=== PATIENT | male | born 1965 | race Two or more races ===

== ENCOUNTER 2017-04-03 09:12 | Emergency (ER) | payer SELFPAY ==
[2017-04-03 09:16] VITALS: TEMP 98.2; BMI 35.9
--- NOTE | 2017-04-03 09:28 | PDOC ---
History of Present Illness <Josh Christensen - Last Filed: 04/03/17 11:57> - General History Source: Patient Exam Limitations: No Limitations - History of Present Illness Initial Comments: 04/03/17 13:18 Patient is a 51 year old male with a past medical history of hypertension (non compliant with medication) who presents to the ED with left flank pain since last Friday. Patient states that the pain is localized to the left flank, constant, non radiating, but he is also complaining of LLQ. Patient states that he has been taking advil with mild relief. He states that the pain is exacerbated by positional changes such as sitting up and standing. Patient reports nausea but denies any vomiting. He also reports mild headache. 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 Denies any recent injuries/falls, heavy lifting, chest pain, shortnes of breath, numness/tingling/weakness, urinary or bowel incontinence. He denies dysuria, urgency, frequency or hematuria. <Karen Arredondo - Last Filed: 04/03/17 13:19> - General Chief Complaint: Pain, Acute Stated Complaint: PAIN/ LOWER BACK, ABD Time Seen by Provider: 04/03/17 09:26 Past History - Past Medical History Anemia: No Asthma: No Cancer: No Cardiac Disorders: No CVA: No COPD: No CHF: No DVT: No Dementia: No Diabetes: No Dialysis: No GI Disorders: No (no diagnosed disorders.) Disorders: No HTN: (elevated and very poor historian, no doctor) Hypercholesterolemia: No HIV: No Kidney Stones: No Liver Disease: No Psychiatric Problems: (anxiety) Suicide Attempt (Hx): No Seizures: No Thyroid Disease: No Lung CA: No - Surgical History Abdominal Surgery: No - Immunization History Immunization Up to Date: Yes (no flu) - Psycho/Social/Smoking Cessation Hx Anxiety: No Suicidal Ideation: No Smoking Status: No Smoking History: Never smoked Have you smoked in the past 12 months: No Number of Cigarettes Smoked Daily: 0 Information on smoking cessation initiated: No 'Breaking Loose' booklet given: 08/28/13 Hx Alcohol Use: No Drug/Substance Use Hx: No Substance Use Type: None <Josh Christensen - Last Filed: 04/03/17 11:57> <Karen Arredondo - Last Filed: 04/03/17 13:19> - Past Medical History Allergies/Adverse Reactions: Allergies Allergy/AdvReac Type Severity Reaction Status Date / Time No Known Allergies Allergy Verified 04/03/17 09:13 Home Medications: Ambulatory Orders NK [No Known Home Medication] 04/03/17 Review of Systems - Review of Systems Able to Perform ROS?: Yes Comments:: 04/03/17 13:19 CONSTITUTIONAL: No reported: Fever, Chills, Diaphoresis, Generalized Weakness, Malaise, Loss of Appetite HEENT: No reported: Rhinorrhea, Nasal Congestion, Throat Pain, Throat Swelling, Difficulty Swallowing, Mouth Swelling, Ear Pain, Eye Pain, Visual Changes CARDIOVASCULAR: No reported: Chest Pain, Syncope, Palpitations, Irregular Heart Rate, Lightheadedness, Peripheral Edema RESPIRATORY: No reported: Cough, Shortness of Breath, SOB with Exertion, Orthopnea, Wheezing , Stridor, Hemoptysis GASTROINTESTINAL: Reported: LLQ pain No reported: Abdominal Distension, Nausea, Vomiting, Diarrhea, Constipation, Melena, Hematochezia GENITOURINARY: No reported: Dysuria, Frequency, Urgency, Hesitancy, Genital Pain MUSCULOSKELETAL: Reported: Left flank pain No reported: Myalgia, Arthralgia, Joint Swelling, Back pain, Neck Pain SKIN: No reported: Rash, Itching, Pallor HEMEATOLOGIC/IMMUNOLOGIC: No reported: Easy Bleeding, Easy Bruising, Lymphadenopathy, Frequent infections ENDOCRINE: No reported: Unexplained Weight Gain, Unexplained Weight Loss, Heat Intolerance , Cold Intolerance NEUROLOGIC: No reported: Headache, Focal Weakness, Paresthesias, Vertigo, Lightheadedness, Unsteady Gait, Seizure, Mental Status Changes, Incontinence PSYCHIATRIC: No reported: Anxiety, Depression <Karen Arredondo - Last Filed: 04/03/17 13:19> *Physical Exam - Vital Signs Last Vital Signs Temp Pulse Resp BP Pulse Ox 98.2 F 94 H 18 154/103 100 04/03/17 09:14 04/03/17 09:14 04/03/17 09:14 04/03/17 09:14 04/03/17 09:14 <Josh Christensen - Last Filed: 04/03/17 11:57> - Vital Signs Last Vital Signs Temp Pulse Resp BP Pulse Ox 98.2 F 81 20 150/95 99 04/03/17 09:14 04/03/17 12:10 04/03/17 12:10 04/03/17 12:10 04/03/17 12:10 - Physical Exam Comments: 04/03/17 13:19 GENERAL: The patient is awake, alert, and fully oriented, Nontoxic - in no acute distress. HEAD: Normocephalic, atraumatic. EYES: extraocular movements intact, sclera anicteric, conjunctiva clear. ENT: Normal voice, Moist mucous membranes. NECK: Normal range of motion, supple LUNGS: Breath sounds equal, clear to auscultation bilaterally. No wheezes, no rhonchi, no rales. HEART: Regular rate and rhythm, without murmur, rub or gallop. ABDOMEN: Soft, nontender, normoactive bowel sounds. No guarding, no rebound.No CVA tenderness EXTREMITIES: Normal range of motion, no edema. No clubbing or cyanosis. No cords, erythema, or tenderness. NEUROLOGICAL: No facial assymetry, Normal speech, PSYCH: Normal mood, normal affect. SKIN: Warm, Dry, normal turgor <Karen Arredondo - Last Filed: 04/03/17 13:19> Heart Score/ECG Review - ECG Impressions Comment:: 04/03/17 11:05 Twelve-lead EKG was performed and reviewed by me. There is normal sinus rhythm with a normal rate. Rate of 87 The axis is normal. The intervals are normal. Q wave in avf <Josh Christensen - Last Filed: 04/03/17 11:57> ED Treatment Course - LABORATORY CBC & Chemistry Diagram: 04/03/17 09:28 04/03/17 09:28 <Josh Christensen - Last Filed: 04/03/17 11:57> - LABORATORY CBC & Chemistry Diagram: 04/03/17 09:28 04/03/17 09:28 - ADDITIONAL ORDERS Additional order review: Laboratory Results 04/03/17 04/03/17 09:45 09:28 Sodium 140 Potassium 3.8 Chloride 105 Carbon Dioxide 29 Anion Gap 6 L BUN 11 Creatinine 1.0 Creat Clearance w eGFR > 60 Random Glucose 105 Calcium 8.5 Total Bilirubin 1.2 H AST 32 ALT 48 D Alkaline Phosphatase 112 Total Protein 6.9 Albumin 3.4 Urine Color Yellow Urine Appearance Clear Urine pH 5.0 Urine Protein Negative Urine Glucose (UA) Negative Urine Ketones Negative Urine Blood Negative Urine Nitrite Negative Urine Bilirubin Negative Urine Urobilinogen Negative Ur Leukocyte Esterase Negative 04/03/17 09:28 RBC 4.47 MCV 88.8 MCHC 35.4 RDW 13.3 MPV 7.9 Neutrophils % 67.9 Lymphocytes % 21.4 Monocytes % 8.2 Eosinophils % 2.1 Basophils % 0.4 - Medications Given in the ED: ED Medications Discontinued Medications Generic Name Dose Route Start Last Admin Trade Name Charity PRN Reason Stop Dose Admin Ketorolac Tromethamine 30 mg 04/03/17 09:57 04/03/17 10:05 Toradol Injection - IVPUSH 04/03/17 09:58 30 mg ONCE ONE Administration <Karen Arredondo - Last Filed: 04/03/17 13:19> Medical Decision Making - Medical Decision Making 04/03/17 10:05 51y M hx of htn, presents with complaint of L flank/back pain x 5 days associated with mild nausea. Pain seems worse with movement but is there at baseline. No associated fever/chills, numbness/tingling/weakness, recent trauma/ injuries. on exam the pt appears well with no focal back tendernessi n midline nor parapsinal. no significant abdominal tendnerness, although pt endorses the pain worsens with SLR of L leg. consider possible kidney stones vs. msk pain will ck basic labs, ua will give toradol A portion of this note was documented by scribe services under my direction. I have reviewed the details of the note, within reason, and agree with the documentation with the following case summary and management plan written by me 04/03/17 11:57 pt feeling improved will dc the pt with pmd fu return precautions were discussed labs unremarkable I discussed the physical exam findings, ancillary test results and final diagnoses with the patient. I answered all of the patient's questions. The patient was satisfied with the care received and felt comfortable with the discharge plan and treatment plan. The patient will call their primary care physician within 24 hours to arrange follow-up and will return to the Emergency Department with any new, persistent or worsening symptoms. <Josh Christensen - Last Filed: 04/03/17 11:57> *DC/Admit/Observation/Transfer - Discharge Dispostion Admit: No <Josh Christensen - Last Filed: 04/03/17 11:57> - Attestations Scribe Attestion: 04/03/17 13:19 Documentation prepared by LUIS FELIPE Hubbard, acting as biomedical electronics technician for Josh Christensen MD. <Karen Arredondo - Last Filed: 04/03/17 13:19> Diagnosis at time of Disposition: Muscular pain - Referrals Referrals: [facility] [Provider Group] - Patient Instructions Printed Discharge Instructions: DI for Back Strain or Sprain Additional Instructions: Vuelva al departamento de emergencia inmediatamente con CUALQUIER nuevo, persistente o empeorando los sntomas. Sospecho que terrell dolor se debe a fabio tensin muscular. [place] ibuprofeno y tylenol segn sea necesario para el dolor. Utilice fabio almohadilla calefactora para mayor comodidad. Evite levantar objetos pesados. Debe llamar y seguir con terrell mdico maana para fabio evaluacin ms detallada de fidel sntomas. Los resultados fueron discutidos con usted. Por favor, asegrese de que terrell mdico revise los resultados de terrell evaluacin de emergencia. Return to the emergency department immediately with ANY new, persistent or worsening symptoms. I suspect your pain is due to a muscle strain. Take ibuprofen and tylenol as needed for pain. Use a heating pad for comfort. Avoid heavy lifting. You MUST call and follow up with your doctor tomorrow for further evaluation of your symptoms. Results were discussed with you. Please make sure your doctor reviews the results of your emergency evaluation. Print Language: NORWEGIAN
[2017-04-03] MEDS ORDERED: KETOROLAC TROMETHAMINE 30 MG/1 ML VIAL IVPUSH ONE (09:57)
[2017-04-03 10:07] LABS: URINE APPEARANCE CLEAR; URINE BILIRUBIN NEGATIVE (NEGATIVE); URINE BLOOD NEGATIVE (NEGATIVE); URINE COLOR YELLOW; URINE GLUCOSE (UA) NEGATIVE (NEGATIVE); URINE KETONE NEGATIVE (NEGATIVE); URINE LEUK ESTERASE NEGATIVE (NEGATIVE); URINE NITRITE NEGATIVE (NEGATIVE); URINE PROTEIN NEGATIVE (NEGATIVE); URINE UROBILINOGEN NEGATIVE mg/dL (0.2-1.0)
[2017-04-03 10:13] LABS: BASOPHIL 0.4 % (0-2.0); EOSINOPHIL 2.1 % (0-4.5); MCH 31.4 pg (25.7-33.7); MCHC 35.4 g/dl (32.0-35.9); MEAN CELL VOLUME 88.8 fl (80-96); MEAN PLT VOLUME 7.9 fl (7.5-11.1); NEUTROPHILS 67.9 % (42.8-82.8); PLATELET COUNT 312 K/MM3 (134-434); RDW 13.3 % (11.9-15.9); WHITE BLOOD COUNT 7.5 K/mm3 (4.0-10.0)
[2017-04-03 10:38] LABS: ALBUMIN 3.4 g/dl (3.4-5.0); ANION GAP 6 (8-16); CALCIUM 8.5 mg/dL (8.5-10.1); CO2 29 mmol/L (21-32); GLUCOSE,RANDOM 105 mg/dL (74-106); SGOT/AST 32 U/L (15-37)
[2017-04-03 11:11] LABS: ALK PHOS 112 U/L (45-117); BILIRUBIN,TOTAL 1.2 mg/dL (0.2-1.0); SGPT/ALT 48 U/L (12-78); TOT PROT 6.9 g/dl (6.4-8.2)
[2017-04-03 12:11] VITALS: BP 150/95; PULSE 81
--- NOTE | 2017-04-03 15:04 | EKG ---
Test Reason : Blood Pressure : / mmHG Vent. Rate : 087 BPM Atrial Rate : 087 BPM P-R Int : 154 ms QRS Dur : 100 ms QT Int : 366 ms P-R-T Axes : 023 004 023 degrees QTc Int : 440 ms NORMAL SINUS RHYTHM MINIMAL VOLTAGE CRITERIA FOR LVH, MAY BE NORMAL VARIANT BORDERLINE ECG WHEN COMPARED WITH ECG OF 26-SEP-2016 16:49, NO SIGNIFICANT CHANGE WAS FOUND Confirmed by PATRICIA CARDOZA MD ([id number]) on 04/03/2017 3:03:57 PM Referred By: Confirmed By:PATRICIA CARDOZA MD
== END 2017-04-03 12:11 ==
LOC: JER 09:12
CPT/HCPCS: 36415; 80053; 81003; 85025; 93005; 93010; 99283-25

== ENCOUNTER 2017-07-05 12:36 | Emergency (ER) | payer SELFPAY ==
[2017-07-05 12:58] VITALS: PULSE 100; TEMP 98.8; BMI 35.2
--- NOTE | 2017-07-05 14:06 | PDOC ---
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 Pt has history of gout ran out of his medications and does not have a doctor at this time. Pt denies fever or chills no injruy. Pt states this is his usual gout area of pain. Severity: Yes: moderate Past History - Past Medical History Allergies/Adverse Reactions: Allergies Allergy/AdvReac Type Severity Reaction Status Date / Time No Known Allergies Allergy Verified 07/05/17 12:58 Home Medications: Ambulatory Orders Colchicine 0.6 mg PO Q2H PRN #6 capsule 07/05/17 Hydrochlorothiazide [Hctz -] 25 mg PO DAILY #30 tablet 07/05/17 Indomethacin [Indocin -] 50 mg PO TID PRN #21 capsule 07/05/17 Anemia: No Asthma: No Cancer: No Cardiac Disorders: No CVA: No COPD: No CHF: No DVT: No Dementia: No Diabetes: No Dialysis: No GI Disorders: No (no diagnosed disorders.) Disorders: No HTN: Yes (NO MEDS, RAN OUT) Hypercholesterolemia: No Kidney Stones: No Liver Disease: No Psychiatric Problems: (anxiety) Seizures: No Thyroid Disease: No Lung CA: No Other medical history: GOUT - Surgical History Abdominal Surgery: No - Immunization History Immunization Up to Date: Yes (no flu) - Suicide/Smoking/Psychosocial Hx Smoking Status: No Smoking History: Never smoked Have you smoked in the past 12 months: No Number of Cigarettes Smoked Daily: 0 Information on smoking cessation initiated: No 'Breaking Loose' booklet given: 08/28/13 Hx Alcohol Use: No Drug/Substance Use Hx: No Substance Use Type: None Review of Systems - Review of Systems Able to Perform ROS?: Yes Is the patient limited [place]an proficient: Yes Constitutional: No: Symptoms Reported HEENTM: No: Symptoms Reported Respiratory: No: Symptoms reported Cardiac (ROS): No: Symptoms Reported ABD/GI: No: Symptoms Reported *Physical Exam - Vital Signs Last Vital Signs Temp Pulse Resp BP Pulse Ox 98.8 F 100 H 20 157/108 97 07/05/17 12:55 07/05/17 12:55 07/05/17 12:55 07/05/17 12:55 07/05/17 12:55 - Physical Exam General Appearance: Yes: Nourished, Appropriately Dressed HEENT: positive: EOMI, PABLO Neck: positive: Supple. negative: Tender Respiratory/Chest: positive: Lungs Clear, Normal Breath Sounds. negative: Chest Tender Cardiovascular: positive: Regular Rhythm, Regular Rate Gastrointestinal/Abdominal: positive: Normal Bowel Sounds, Soft Lymphatic: negative: Adenopathy Musculoskeletal: positive: Normal Inspection Extremity: positive: Normal Capillary Refill, Normal Inspection, Normal Range of Motion. negative: Tender Integumentary: positive: Normal Color, Dry, Warm Neurologic: positive: Fully Oriented, Alert, Normal Mood/Affect, Normal Response , Motor Strength 5/5. negative: Sensory Deficit Medical Decision Making - Medical Decision Making 07/05/17 14:06 cc: bilateral pain to the ankles and left great toe no fever no abd kassidy or chest pain, no dizzyness pt has not had his BP meds in one month ran out is trying to get appointment at the clinic no dizzyness, no headache 07/05/17 14:58 07/05/17 18:52 uric acid is elevated will treat for gout. *DC/Admit/Observation/Transfer Diagnosis at time of Disposition: Gout Hypertension Qualifiers: Hypertension type: essential hypertension Qualified Code(s): I10 - Essential ( primary) hypertension - Discharge Dispostion Disposition: HOME Condition at time of disposition: Improved - Prescriptions Prescriptions: Colchicine 0.6 mg PO Q2H PRN #6 capsule PRN Reason: Pain Hydrochlorothiazide [Hctz -] 25 mg PO DAILY #30 tablet Indomethacin [Indocin -] 50 mg PO TID PRN #21 capsule PRN Reason: Pain - Referrals Referrals: [facility] ([facility]) [Outside] - Patient Instructions Additional Instructions: take the medications as directed follow with the clinic for follow up call Friday to make appointment take the medication as prescribed take 1.2mg colchicine now and in one hour take 0.6mg - Post Discharge Activity
[2017-07-05] MEDS ORDERED: HYDROCHLOROTHIAZIDE 25 MG TABLET (FP) PO ONE (14:09)
[2017-07-05] MEDS ORDERED: HYDROCHLOROTHIAZIDE 25 MG TABLET (FP) ONE (14:19)
[2017-07-05] MEDS ORDERED: INDOMETHACIN 50 MG CAPSULE PO ONE (14:25)
[2017-07-05 15:01] VITALS: BP 147/97
== END 2017-07-05 15:11 | disposition home or self-care (01) ==
LOC: JERFT 12:36
DX: M10.9 Gout, unspecified (principal); I10 Essential (primary) hypertension
CPT/HCPCS: 36415; 84550; 99281-25

== ENCOUNTER 2017-07-21 12:28 | Emergency (ER) | payer SELFPAY ==
[2017-07-21 12:34] VITALS: BP 157/104; PULSE 118; TEMP 97.9; BMI 35.9
--- NOTE | 2017-07-21 13:30 | PDOC ---
History of Present Illness - General Chief Complaint: Pain, Acute Stated Complaint: REVISIT, PAIN Time Seen by Provider: 07/21/17 13:15 Past History - Past Medical History Allergies/Adverse Reactions: Allergies Allergy/AdvReac Type Severity Reaction Status Date / Time No Known Allergies Allergy Verified 07/21/17 12:31 Home Medications: Ambulatory Orders Hydrochlorothiazide [Hctz -] 25 mg PO DAILY #30 tablet 07/05/17 Colchicine 0.6 mg PO BID #20 capsule 07/21/17 Ibuprofen [Motrin -] 600 mg PO QID #28 tablet 07/21/17 Methylprednisolone [Medrol Dose [place]] 4 mg PO ASDIR #21 tablet 07/21/17 Anemia: No Asthma: No Cancer: No Cardiac Disorders: No CVA: No COPD: No CHF: No DVT: No Dementia: No Diabetes: No Dialysis: No GI Disorders: No (no diagnosed disorders.) Disorders: No HTN: Yes (NO MEDS, RAN OUT) Hypercholesterolemia: No Kidney Stones: No Liver Disease: No Psychiatric Problems: (anxiety) Seizures: No Thyroid Disease: No Lung CA: No - Surgical History Abdominal Surgery: No - Immunization History Immunization Up to Date: Yes (no flu) - Suicide/Smoking/Psychosocial Hx Smoking Status: No Smoking History: Never smoked Have you smoked in the past 12 months: No Number of Cigarettes Smoked Daily: 0 'Breaking Loose' booklet given: 08/28/13 Hx Alcohol Use: No Drug/Substance Use Hx: No Substance Use Type: None *Physical Exam - Vital Signs Last Vital Signs Temp Pulse Resp BP Pulse Ox 97.9 F 118 H 18 157/104 96 07/21/17 12:31 07/21/17 12:31 07/21/17 12:31 07/21/17 12:31 07/21/17 12:31 Medical Decision Making - Medical Decision Making 07/21/17 14:25 Uric acid is 9.3. Will prescribe prednisone at this time as well as cholcicine. Pt. has f/u with clinic on 07/30/17. Told to keep the appointment with clinic *DC/Admit/Observation/Transfer Diagnosis at time of Disposition: Gout - Discharge Dispostion Disposition: HOME Condition at time of disposition: Stable Admit: No - Referrals - Patient Instructions Printed Discharge Instructions: DI for Gout Additional Instructions: You have another flare of your gout. Please take the prednisone as prescribed. Once you finish the prednisone you may take ibuprofen 600mg every 6 hours. This should help with the pain. Please take the colchecine as prescribed. Keep your appointment with the clinic for next week. Drink plenty of fluids. Return to the ED if you have worsening pain, fevers, chills, or have any changes in your symptoms. Tienes otra llamarada de tu gota. Por favor, tome la prednisona segn lo prescrito. Judith vez que termine la prednisona, puede damaris ibuprofeno 600 mg cada 6 horas. [place] debera ayudar con el dolor. Por favor, tome la colchecine segn lo prescrito. Mantenga terrell asha con la clnica para la prxima semana. Beber mucho lquido. Regrese al departamento de emergencias si tiene un empeoramiento del dolor, fiebre, escalofros o cambios en fidel sntomas. Print Language: MONGOLIAN - Post Discharge Activity
[2017-07-21] MEDS ORDERED: INDOMETHACIN 50 MG CAPSULE PO ONE (13:31)
[2017-07-21] MEDS ORDERED: COLCHICINE 0.6 MG TABLET (FP) PO ONE (14:26)
[2017-07-21] MEDS ORDERED: COLCHICINE 0.6 MG TABLET (FP) ONE (14:43)
== END 2017-07-21 15:29 | disposition home or self-care (01) ==
LOC: JERFT 12:28
DX: M10.9 Gout, unspecified (principal); I10 Essential (primary) hypertension; F41.9 Anxiety disorder, unspecified
CPT/HCPCS: 36415; 84550; 99281-25

== ENCOUNTER 2020-12-30 09:42 | Emergency (ER) | payer SELFPAY ==
[2020-12-30 10:12] VITALS: TEMP 98.5; BMI 29.8
[2020-12-30] MEDS ORDERED: MECLIZINE HCL 25 MG TABLET (FP) PO ONE (10:34)
[2020-12-30] MEDS ORDERED: MECLIZINE HCL 25 MG TABLET (FP) ONE (11:02)
[2020-12-30 11:07] VITALS: BP 150/95; PULSE 74
== END 2020-12-30 12:35 | disposition home or self-care (01) ==
LOC: JER 09:42
DX: S09.90XA Unspecified injury of head, initial encounter (principal); R42 Dizziness and giddiness
CPT/HCPCS: 70450-TC; 82962; 93005; 93010; 99285-25

== ENCOUNTER 2025-02-04 12:21 | Emergency (ER) | payer OTHER ==
[2025-02-04 12:30] VITALS: RESP 16; TEMP 99.2; BMI 37.4
[2025-02-04 13:45] VITALS: BP 153/93; PULSE 94
[2025-02-04] MEDS ORDERED: ACETAMINOPHEN 500 MG TABLET (FP) ONE (14:58)
[2025-02-04] MEDS ORDERED: IBUPROFEN 400 MG TABLET (FP) PO ONE (14:58)
[2025-02-04] MEDS: IBUPROFEN 400 MG TABLET (FP) PO ONE (15:05)
[2025-02-04] MEDS: ACETAMINOPHEN 500 MG TABLET (FP) PO ONE (15:07)
== END 2025-02-04 15:37 | disposition home or self-care (01) ==
LOC: JERFT 12:21
DX: S46.012A Strain of muscle(s) and tendon(s) of the rotator cuff of left shoulder, initial encounter (principal); S16.1XXA Strain of muscle, fascia and tendon at neck level, initial encounter; R42 Dizziness and giddiness; V49.40XA Driver injured in collision with unspecified motor vehicles in traffic accident, initial encounter
CPT/HCPCS: 70450-TC; 72125-TC; 93005; 93010; 99284-25